=== PATIENT | male | born 1965 | race Caucasian/White ===

== ENCOUNTER 2016-12-30 16:42 | Emergency (ER) | payer SELFPAY ==
[~2016-12-30] VITALS: Ht 180.3 cm; Wt 86.2 kg
[2016-12-30 16:54] VITALS: BP 148/72
[2016-12-30] MEDS ORDERED: PENI500T PO (17:29)
[2016-12-30] MEDS ORDERED: TRAM-29 PO (17:29)
--- NOTE | 2016-12-30 17:29 | PHYS DOC ---
Past Medical History Past Medical History: No Pertinent History Past Surgical History: No Surgical History Additional Information: nonsmoker Alcohol Use: None Drug Use: None Adult General Chief Complaint Chief Complaint: DENTAL PROBLEM HPI HPI Patient is a 51 year old male who presents with right mandible or dental pain after his tooth broke while eating a [place] rancher candy. He does not take any home medications. His PCP is Dr. Albert Rosales. He does not have a dentist. Review of Systems Review of Systems Constitutional: Denies fever or chills. [] Eyes: Denies change in visual acuity, redness, or eye pain. [] HENT: Denies ear pain, nasal congestion or sore throat. Reports dental pain. Integument: Denies rash or skin lesions. [] Neurologic: Denies headache, focal weakness or sensory changes. [] Allergies Allergies Allergies Coded Allergies Type Severity Reaction Last Updated Verified No Known Drug Allergies 12/30/16 No Physical Exam Physical Exam Constitutional: Well developed, well nourished, no acute distress, non-toxic appearance. [] HENT: Normocephalic, atraumatic, bilateral external ears normal, oropharynx moist, no oral exudates, nose normal. Bilateral TMs without erythema or bulging. There is no posterior pharyngeal erythema or tonsillar edema. Tooth # 29 is broken around a previous filling. There is no surrounding gingival edema or dental abscess. Eyes: PERRLA, EOMI, conjunctiva normal, no discharge. [] Neck: Normal range of motion, no tenderness, supple, no stridor. [] Skin: Warm, dry, no erythema, no rash. [] Neurologic: Alert and oriented X 3, normal motor function, normal sensory function, no focal deficits noted. [] Psychologic: Affect normal, judgement normal, mood normal. [] Current Patient Data Vital Signs Vital Signs Date Time Temp Pulse Resp B/P Pulse Ox O2 Delivery O2 Flow Rate FiO2 12/30/16 16:54 98.2 80 18 99 Room Air 98.2 EKG EKG [] Radiology/Procedures Radiology/Procedures [] Course & Med Decision Making Course & Med Decision Making Pertinent Labs and Imaging studies reviewed. (See chart for details) [] Dragon Disclaimer Dragon Disclaimer This electronic medical record was generated, in whole or in part, using a voice recognition dictation system. Departure Departure Impression: Primary Impression: Dentalgia Disposition: 01 HOME, SELF-CARE Condition: STABLE Patient Instructions: Dental Pain, [id number] Additional Instructions: Please complete all the prescribed antibiotics, even if your tooth is feeling better. Please take the prescribed pain medication as instructed. Do not drive or operate heavy machinery while taking narcotics. Please follow-up with the dentist of your choice touch your earliest convenience. Return to emergency department if any new or concerning symptoms. Scripts Tramadol Hcl (Ultram)50 Mg [id number] Mg PO Q6H PRN PAIN #20 TAB Prov:VOLODYMYR HOOK 12/30/16 Penicillin V Potassium 500 Mg Tablet1 Tab PO TID #30 TAB Prov:VOLODYMYR HOOK 12/30/16 VOLODYMYR HOOK Dec 30, 2016 17:29
== END 2016-12-30 17:42 | disposition home or self-care (01) ==
LOC: ER 16:42
DX: K08.89 Other specified disorders of teeth and supporting structures (principal)
CPT/HCPCS: 99283

== ENCOUNTER 2018-11-23 15:53 | Emergency (ER) | payer SELFPAY ==
[~2018-11-23] VITALS: Ht 180.3 cm; Wt 90.7 kg
[~2018-11-23 15:53] MED LIST: PENI500T PO; TRAM-48 PO
[2018-11-23 17:59] VITALS: BP 149/80
[2018-11-23] MEDS ORDERED: HYDROcodone/APAP 5/325MG 1 TAB TABLET PO ONE (18:00)
--- NOTE | 2018-11-23 18:32 | PHYS DOC ---
Past Medical History Past Medical History: No Pertinent History (WILLEM MARIN APRN) Past Surgical History: No Surgical History (WILLEM MARIN APRN) Alcohol Use: None Drug Use: None (WILLEM MARIN APRN) Adult General Chief Complaint Chief Complaint: MECHANICAL FALL HPI HPI Patient is a 53 year old male who presents to the ER with complaints of tailbone pain after slip and fall on icy metal steps around 1630 today. He denies any LOC, numbness, tingling, or weakness of lower extremities. He denies any head injury or upper back pain. He rates his pain a 8/10 on the pain scale. (WILLEM MARIN APRN) Review of Systems Review of Systems Constitutional: Denies fever or chills [] Musculoskeletal: See HPI Integument: Denies rash or skin lesions [] Neurologic: Denies headache, focal weakness or sensory changes [] (WILLEM MARIN APRN) Current Medications Current Medications Current Medications Medications (Trade) Dose Ordered Sig/Daniel Start Time Stop Time Status Last Admin Dose Admin Acetaminophen/ Hydrocodone Bitart (Lortab 5/325) 1 tab 1X ONCE 11/23/18 18:00 11/23/18 18:01 DC 11/23/18 18:14 1 TAB (ZACHARY REVELES DO) Allergies Allergies Allergies Coded Allergies Type Severity Reaction Last Updated Verified No Known Drug Allergies 12/30/16 No (ZACHARY REVELES DO) Physical Exam Physical Exam Constitutional: Well developed, well nourished, no acute distress, non-toxic appearance. [] HENT: Normocephalic, atraumatic, bilateral external ears normal, nose normal. [ ] Eyes: conjunctiva normal, no discharge. [] Neck: Normal range of motion, no stridor. [] Skin: Warm, dry, no erythema, no rash. [] Back: midline tenderness lower lumbar and sacra regions, no crepitus or deformity [] Extremities: No cyanosis, no clubbing, ROM intact, no edema. [] Neurologic: Alert and oriented X 3, normal motor function, normal sensory function, no focal deficits noted. [] Psychologic: Affect normal, judgement normal, mood normal. [] (WILLEM MARIN APRN) Current Patient Data Vital Signs Vital Signs Date Time Temp Pulse Resp B/P (MAP) Pulse Ox O2 Delivery O2 Flow Rate FiO2 11/23/18 18:14 16 99 Room Air 11/23/18 17:59 97.6 83 149/80 (103) 97.6 (ZACHARY REVELES DO) EKG EKG [] (WILLEM MARIN APRN) Radiology/Procedures Radiology/Procedures Lumbar, sacral, and coccyx films are negative for acute findings read by Dr. Reveles. [] (WILLEM MARIN APRN) Course & Med Decision Making Course & Med Decision Making Pertinent Labs and Imaging studies reviewed. (See chart for details) [] (WILLEM MARIN APRN) Dragon Disclaimer Dragon Disclaimer This electronic medical record was generated, in whole or in part, using a voice recognition dictation system. (WILLEM MARIN APRN) Departure Departure Impression: Primary Impression: Contusion of coccyx Additional Impressions: Tailbone injury Fall (on) (from) other stairs and steps, initial encounter Disposition: HOME, SELF-CARE Condition: STABLE Referrals: NO PCP (PCP) Patient Instructions: Tailbone Injury, Setp-bn-[id number] Additional Instructions: Fill the prescription and use as directed. Recommend sitting on a pillow for comfort. Activity as tolerated. Follow up with your doctor if symptoms persist, return to the ER if symptoms worsen. Scripts Hydrocodone Bit/Acetaminophen (HYDROCODONE-APAP 5-325 ) 1 Tab Tablet 1 TAB PO PRN Q6HRS PRN for PAIN for 3 Days, #12 TAB 0 Refills Prov: WILLME MARIN APRN 11/23/18 Attending Signature Attending Signature I have reviewed the PA/NEWSPAPER PHOTOJOURNALIST's note and plan of care. I was available for consultation as needed during the patient's visit in the emergency department. I agree with the clinical impression, plan, and disposition. (ZACHARY REVELES DO) Problem Qualifiers Primary Impression: Contusion of coccyx Encounter type: initial encounter Qualified Codes: S30.0XXA - Contusion of lower back and pelvis, initial encounter Additional Impressions: Tailbone injury Encounter type: initial encounter Qualified Codes: S39.92XA - Unspecified injury of lower back, initial encounter WILLEM MARIN APRN Nov 23, 2018 18:32 ZACHARY REVELES DO Nov 24, 2018 00:55
[2018-11-23] MEDS ORDERED: HYDR-2761 PO (19:32)
--- NOTE | 2018-11-24 08:39 | RAD ---
Indications: Fall down stairs. Low back pain and tailbone pain. 3 view study of the sacrum and coccyx: No acute fracture or displacement or lytic process is seen. 3 view study of the lumbar spine: The transverse processes are intact. No compression fracture or discitis or lytic process or anterolisthesis is seen. IMPRESSION: No acute fracture. Electronically signed by: Erasmo Pleitez MD (11/24/2018 8:35 AM) [facility]
== END 2018-11-23 19:38 | disposition home or self-care (01) ==
LOC: ER 15:53
DX: S30.0XXA Contusion of lower back and pelvis, initial encounter (principal); W10.8XXA Fall (on) (from) other stairs and steps, initial encounter; Y93.89 Activity, other specified; Y92.89 Other specified places as the place of occurrence of the external cause; Y99.8 Other external cause status
CPT/HCPCS: 72100; 72220; 99283

== ENCOUNTER 2018-12-01 13:11 | Emergency (ER) | payer SELFPAY ==
[~2018-12-01] VITALS: Ht 180.3 cm; Wt 90.7 kg
[~2018-12-01 13:11] MED LIST changes: +HYDR-2761 PO
[2018-12-01 13:51] VITALS: BP 160/76
[2018-12-01] MEDS ORDERED: AZIT250T6 PO (14:07)
[2018-12-01] MEDS ORDERED: HYDR5SUS PO (14:07)
--- NOTE | 2018-12-01 14:07 | PHYS DOC ---
Past Medical History Past Medical History: No Pertinent History (WILLEM MARIN APRN) Past Surgical History: No Surgical History (WILLEM MARIN APRN) Alcohol Use: None Drug Use: None (WILLEM MARIN APRN) Adult General Chief Complaint Chief Complaint: COUGH HPI HPI Patient is a 53 year old male who presents to the ER with complaints of a productive cough, nasal congestion, and fevers up to 101 for the last 4-5 days. Pt denies any nausea, vomiting, diarrhea, abdominal, pain or shortness of breath. Pt states that he has post nasal drainage and that his throat feels irritated and raw. He denies any ear pain, nose bleeds, or drainage from ears. Pt states that his head feels congested and that when he feels like this his doctor usually prescribes him z-erickson and some tussionex and he feels better. (IWLLEM MARIN APRN) Review of Systems Review of Systems Constitutional: see HPI Eyes: Denies redness, or eye pain [] HENT: See HPI Respiratory: Denies wheezing or shortness of breath; see HPI Cardiovascular: No additional information not addressed in HPI [] GI: Denies abdominal pain, nausea, vomiting, or diarrhea [] Musculoskeletal: Denies back pain or joint pain [] Integument: Denies rash or skin lesions [] Neurologic: Denies headache, focal weakness or sensory changes [] (WILLEM MARIN APRN) Allergies Allergies Allergies Coded Allergies Type Severity Reaction Last Updated Verified No Known Drug Allergies 12/30/16 No (ZACHARY REVELES DO) Physical Exam Physical Exam Constitutional: Well developed, well nourished, no acute distress, non-toxic appearance. [] HENT: Normocephalic, atraumatic, bilateral external ears normal, bilateral TMs normal, cobblestone appearance of posterior pharynx with mild erythema, oropharynx moist, no oral exudates, nose normal. [] Eyes: conjunctiva normal, no discharge. [] Neck: Normal range of motion, no tenderness, supple, no stridor. [] Cardiovascular:Heart rate regular rhythm, no murmur [] Lungs & Thorax: Bilateral breath sounds scattered rhonchi that clears with cough [] Skin: Warm, dry, no erythema, no rash. [] Extremities: No cyanosis, no clubbing, ROM intact Neurologic: Alert and oriented X 3, normal motor function, normal sensory function, no focal deficits noted. [] Psychologic: Affect normal, judgement normal, mood normal. [] (WILLEM MARIN APRN) Current Patient Data Vital Signs Vital Signs Date Time Temp Pulse Resp B/P (MAP) Pulse Ox O2 Delivery O2 Flow Rate FiO2 12/01/18 13:51 98.2 76 18 160/76 (104) 100 Room Air 98.2 (ZACHARY REVELES DO) EKG EKG [] (WILLEM MARIN APRN) Radiology/Procedures Radiology/Procedures [] (WILLEM MARIN APRN) Course & Med Decision Making Course & Med Decision Making Pertinent Labs and Imaging studies reviewed. (See chart for details) Dx: URI, acute bronchitis Prescriptions for Z-Erickson and Tussionex. Patient verbalized an understanding of home care, medications, follow-up, and return to ED instructions and was in agreement with the plan of care. [] (WILLEM MARIN APRN) Dragon Disclaimer Dragon Disclaimer This electronic medical record was generated, in whole or in part, using a voice recognition dictation system. (WILLEM MARIN APRN) Departure Departure Impression: Primary Impression: URI with cough and congestion Additional Impression: Acute bronchitis Disposition: 01 HOME, SELF-CARE Condition: STABLE Referrals: ELLE RILEY MD (PCP) Patient Instructions: Upper Respiratory Infection, Adult, [id number] Additional Instructions: Fill prescription(s) and use as directed. Recommend use of a Cool mist humidifier in room at bedtime. Alternate Tylenol or ibuprofen as needed for pain /fever. Increase clear fluids. Avoid airway triggers such as smoke, fragrance, dust, and pollen. May take [id number] cough suppressants as needed. Follow -up with your primary care doctor symptoms persist, return to the ER symptoms worsen. Scripts Azithromycin (AZITHROMYCIN TABLET) 250 Mg Tablet 1 PKG PO UD for 5 Days, #6 TAB 0 Refills Prov: WILLEM MARIN APRN 12/01/18 Hydrocodone/Chlorphen Polis (HYDROCODONE-CHLORPHENIRAM SUSP) 5 Ml Madina.er.12h 5 ML PO PRN Q12HR PRN for COUGH for 5 Days, #50 ML 0 Refills Prov: WILLEM MARIN CRAYON SAWYER 12/01/18 Attending Signature Attending Signature I have reviewed the PA/MANUFACTURED BUILDINGS REPAIRER's note and plan of care. I was available for consultation as needed during the patient's visit in the emergency department. I agree with the clinical impression, plan, and disposition. (ZACHARY REVELES DO) Problem Qualifiers Additional Impression: Acute bronchitis Bronchitis organism: unspecified organism Qualified Codes: J20.9 - Acute bronchitis, unspecified WILLEM MARIN CRAYON SAWYER Dec 01, 2018 14:07 ZACHARY REVELES DO Dec 01, 2018 15:56
== END 2018-12-01 14:13 | disposition home or self-care (01) ==
LOC: ER 13:11
DX: J20.9 Acute bronchitis, unspecified (principal); J06.9 Acute upper respiratory infection, unspecified
CPT/HCPCS: 99283

== ENCOUNTER 2019-02-02 10:30 | Emergency (ER) | payer SELFPAY ==
[~2019-02-02] VITALS: Ht 180.3 cm; Wt 90.7 kg
[~2019-02-02 10:30] MED LIST changes: +AZIT250T6 PO; +HYDR5SUS PO
[2019-02-02 10:42] VITALS: BP 179/88
--- NOTE | 2019-02-02 10:47 | PHYS DOC ---
Past Medical History Past Medical History: No Pertinent History Past Surgical History: No Surgical History Alcohol Use: None Drug Use: None Adult General Chief Complaint Chief Complaint: DENTAL PROBLEM HPI HPI Patient is a 53 year old male who presents with moderate right lower gum dental pain that began today after he bit into hard candy. Patient states he broke his tooth. Patient states the pain is worse when he drinks anything cold "eats anything cold. He states he doesn't have a dentist but he for give him a list he will be able to call and establish care. Review of Systems Review of Systems Constitutional: Denies fever or chills [] HENT: Reports dental pain. Denies nasal congestion or sore throat [] Musculoskeletal: Denies back pain or joint pain [] Integument: Denies rash or skin lesions [] Neurologic: Denies headache, focal weakness or sensory changes [] All other systems were reviewed and found to be within normal limits, except as documented in this note. Allergies Allergies Allergies Coded Allergies Type Severity Reaction Last Updated Verified No Known Drug Allergies 12/30/16 No Physical Exam Physical Exam Constitutional: Well developed, well nourished, no acute distress, non-toxic appearance. [] HENT: Normocephalic, atraumatic, bilateral external ears normal, oropharynx moist, no oral exudates, nose normal. Tooth #29 is broken around a previous filling. Obvious dental decay to the affected tooth. No gum erythema. No gum swelling. Skin: Warm, dry, no erythema, no rash. [] Back: No tenderness, no CVA tenderness. [] Extremities: No tenderness, no cyanosis, no clubbing, ROM intact, no edema. [] Neurologic: Alert and oriented X 3, normal motor function, normal sensory function, no focal deficits noted. [] Psychologic: Affect normal, judgement normal, mood normal. [] Current Patient Data Vital Signs Vital Signs Date Time Temp Pulse Resp B/P (MAP) Pulse Ox O2 Delivery O2 Flow Rate FiO2 02/02/19 10:42 98.2 92 18 179/88 (118) 98 Room Air 98.2 EKG EKG [] Radiology/Procedures Radiology/Procedures [] Course & Med Decision Making Course & Med Decision Making Pertinent Labs and Imaging studies reviewed. (See chart for details) Patient has an infected tooth which broke today. While discharged with tramadol and amoxicillin. He is reasonable enough, he states he will call a dentist from the list provided and follow-up. Trent Disclaimer Dragon Disclaimer This electronic medical record was generated, in whole or in part, using a voice recognition dictation system. Departure Departure Impression: Primary Impression: Dentalgia Disposition: 01 HOME, SELF-CARE Referrals: ELLE RILEY MD (PCP) Follow-up with her dentist in the next 1-2 weeks Patient Instructions: Dental Pain, [id number] Additional Instructions: You were seen for dental pain in the emergency room. We put you on antibiotics, kindly ensure you complete them. Please contact a dentist and establish care. Do not drive or operate machinery on the pain medicine. Scripts Amoxicillin (AMOXICILLIN) 500 Mg Capsule 1 CAP PO BID, #20 CAP Prov: BALDEMAR GARZA APRN 02/02/19 Tramadol Hcl (TRAMADOL HCL) 50 Mg Tablet 50 MG PO Q6HRS PRN for PAIN, #20 TAB Prov: BALDEMAR GARZA APRN 02/02/19 BALDEMAR GARZA APRN Feb 02, 2019 10:47
[2019-02-02] MEDS ORDERED: AMOX500C PO (10:52)
[2019-02-02] MEDS ORDERED: TRAM50TA PO (10:52)
== END 2019-02-02 10:56 | disposition home or self-care (01) ==
LOC: ER 10:30
DX: K02.9 Dental caries, unspecified (principal)
CPT/HCPCS: 99283

== ENCOUNTER 2019-04-01 08:28 | Emergency (ER) | payer SELFPAY ==
[~2019-04-01] VITALS: Ht 180.3 cm; Wt 90.7 kg
[~2019-04-01 08:28] MED LIST changes: +AMOX500C PO; +TRAM50TA PO
[2019-04-01 09:14] VITALS: BP 158/83
[2019-04-01] MEDS ORDERED: diazePAM 5 MG TABLET PO ONE (09:15)
[2019-04-01] MEDS ORDERED: predniSONE 10 MG TABLET PO ONE (09:15)
[2019-04-01] MEDS ORDERED: MORPHINE SULFATE 10 MG/ML VIAL. IM ONE (09:15)
[2019-04-01] MEDS ORDERED: METH4TAB2 PO (09:24)
[2019-04-01] MEDS ORDERED: DICL50TA4 PO (09:24)
[2019-04-01] MEDS ORDERED: CYCL10TA2 PO (09:24)
--- NOTE | 2019-04-01 09:24 | PHYS DOC ---
Past Medical History Past Medical History: No Pertinent History Past Surgical History: No Surgical History Alcohol Use: None Drug Use: None Adult General Chief Complaint Chief Complaint: [facility] HPI Patient is a 53 year old male with no significant medical history who presents to the ED today complaining of 8 out of 10 left shoulder pain that began yesterday morning when he got up. Patient states he strongly believes he slept wrong on his shoulder. Denies any known injury. He states he typically sleeps in a certain position but woke up in a different position yesterday. Patient is completely denies any chest pain, shortness of breath or injury. He states the pain is worse on moving his left upper extremity to certain positions. He states the pain is sometimes relieved by raising his left upper extremity above his head. Patient states the pain radiates to the left upper extremity, denies any numbness or tingling to bilateral upper extremities. Review of Systems Review of Systems Constitutional: Denies fever or chills [] Eyes: Denies change in visual acuity, redness, or eye pain [] HENT: Denies nasal congestion or sore throat [] Respiratory: Denies cough or shortness of breath [] Cardiovascular: No additional information not addressed in HPI [] GI: Denies abdominal pain, nausea, vomiting, bloody stools or diarrhea [] : Denies dysuria or hematuria [] Musculoskeletal: Reports left shoulder pain Integument: Denies rash or skin lesions [] Neurologic: Denies headache, focal weakness or sensory changes [] All other systems were reviewed and found to be within normal limits, except as documented in this note. Allergies Allergies Allergies Coded Allergies Type Severity Reaction Last Updated Verified No Known Drug Allergies 12/30/16 No Physical Exam Physical Exam Constitutional: Well developed, well nourished, no acute distress, non-toxic appearance. [] HENT: Normocephalic, atraumatic, bilateral external ears normal, oropharynx moist, no oral exudates, nose normal. [] Eyes: PERRLA, EOMI, conjunctiva normal, no discharge. [] Neck: Normal range of motion, no tenderness, supple, no stridor. [] Cardiovascular:Heart rate regular rhythm, no murmur [] Lungs & Thorax: Bilateral breath sounds clear to auscultation [] Abdomen: Bowel sounds normal, soft, no tenderness, no masses, no pulsatile masses. [] Skin: Warm, dry, no erythema, no rash. [] Back: No tenderness, no CVA tenderness. [] Extremities: Left shoulder/upper extremity with no obvious deformity. No tenderness on palpation of the left shoulder upper extremity. Full range of motion to the left upper extremity. Adequate radial, medial, ulnar sensation to the left upper extremity. +2 left radial pulse. Cap refill less than 2 seconds the left fingers. Neurologic: Alert and oriented X 3, normal motor function, normal sensory fun ction, no focal deficits noted. [] Psychologic: Affect normal, judgement normal, mood normal. [] EKG EKG [] Radiology/Procedures Radiology/Procedures [] Course & Med Decision Making Course & Med Decision Making Pertinent Labs and Imaging studies reviewed. (See chart for details) This is a 53-year-old male patient presented to the ED today with complaints of left shoulder pain radiating to the left upper extremity symptoms began yesterday morning when he got up, patient believes he slept wrong on his left side. Talked to patient about slight possibility of this being a cardiac related pain, patient has completely refused any possibility of this being cardiac chest pain. He states he does not want any cardiac workup, he states he would like some pain medicine. He has no PCP. Provided him a clinic list for follow- up. Discharged on Medrol Dosepak, cyclobenzaprine and diclofenac. Dragon Disclaimer Dragon Disclaimer This electronic medical record was generated, in whole or in part, using a voice recognition dictation system. Departure Departure Impression: Primary Impression: Shoulder strain Additional Impression: Radicular pain in left arm Disposition: 01 HOME, SELF-CARE Condition: STABLE Referrals: ELLE RILEY MD (PCP) follow up next week Patient Instructions: Cervical Radiculopathy, [id number], Shoulder Sprain Additional Instructions: You were evaluated in the emergency room for pain to the left upper extremity. We wrote to medications, take them as prescribed. Follow-up with your doctor in the next 1 week. Please apply heat to the affected region. Scripts Diclofenac Sodium (DICLOFENAC SODIUM) 50 Mg Tablet. 1 TAB PO BID, #20 TAB 0 Refills Prov: EVANUNGABALDEMAR RADIO ELECTRONICS OFFICER 04/01/19 Methylprednisolone (MEDROL) 4 Mg Tab.ds.pk 1 PKG PO UD, #1 PKG Prov: MUTUNGA,BALDEMAR RADIO ELECTRONICS OFFICER 04/01/19 Cyclobenzaprine Hcl (CYCLOBENZAPRINE HCL) 10 Mg Tablet 1 TAB PO TID, #30 TAB Prov: BALDEMAR GARZA APRN 04/01/19 Problem Qualifiers Primary Impression: Shoulder strain Encounter type: initial encounter Laterality: left Qualified Codes: S46.912A - Strain of unspecified muscle, fascia and tendon at shoulder and upper arm level, left arm, initial encounter BALDEMAR GARZA APRN Apr 01, 2019 09:24
== END 2019-04-01 09:38 | disposition home or self-care (01) ==
LOC: ER 08:28
DX: S46.812A Strain of other muscles, fascia and tendons at shoulder and upper arm level, left arm, initial encounter (principal); X58.XXXA Exposure to other specified factors, initial encounter; Y93.89 Activity, other specified; Y92.89 Other specified places as the place of occurrence of the external cause; Y99.8 Other external cause status
CPT/HCPCS: 96372; 99283; J2270; J7512

== ENCOUNTER 2019-05-26 11:43 | Emergency (ER) | payer SELFPAY ==
[~2019-05-26] VITALS: Ht 180.3 cm; Wt 90.7 kg
[~2019-05-26 11:43] MED LIST changes: +CYCL10TA2 PO; +DICL50TA4 PO; +METH4TAB2 PO
[2019-05-26 12:24] VITALS: BP 150/82
--- NOTE | 2019-05-26 12:45 | PHYS DOC ---
Past Medical History Past Medical History: No Pertinent History Past Surgical History: No Surgical History Alcohol Use: None Drug Use: None Adult General Chief Complaint Chief Complaint: SHOULDER INJURY [facility] HPI Patient is a 53 year old male presents to the ED complaining of left shoulder injury. States he was moving furniture and states he tripped and landed on his left shoulder. Describes pain as sharp. Rates his pain as 5 out of 10. Pain with range of motion. Reports he suffered an abrasion to his left shoulder. Denies weakness, paresthesias, chest pain, shortness of breath, symptoms prior to fall or use of blood thinners. Review of Systems Review of Systems Constitutional: Denies fever or chills [] Eyes: Denies change in visual acuity, redness, or eye pain [] HENT: Denies nasal congestion or sore throat [] Respiratory: Denies cough or shortness of breath [] Cardiovascular: No additional information not addressed in HPI [] GI: Denies abdominal pain, nausea, vomiting, bloody stools or diarrhea [] : Denies dysuria or hematuria [] Musculoskeletal: Complains of shoulder pain. Denies back pain. [] Integument: Denies rash or skin lesions [] Neurologic: Denies headache, focal weakness or sensory changes [] All other systems were reviewed and found to be within normal limits, except as documented in this note. Allergies Allergies Allergies Coded Allergies Type Severity Reaction Last Updated Verified No Known Drug Allergies 12/30/16 No Physical Exam Physical Exam Constitutional: Well developed, well nourished, no acute distress, non-toxic appearance. [] HENT: Normocephalic, atraumatic Neck: Normal range of motion, no tenderness, supple, no stridor. [] Cardiovascular:Heart rate regular rhythm, no murmur [] Lungs & Thorax: Bilateral breath sounds clear to auscultation [] Skin: Warm, dry, no erythema, no rash. [] Back: No tenderness, no CVA tenderness. [] Extremities: mild left shoulder tenderness. Pain with ROM. Overlying abrasion to left lateral shoulder. Negative empty can test, Yergason's and speeds. NV intact. no cyanosis, no clubbing, ROM intact, no edema. [] Neurologic: Alert and oriented X 3, normal motor function, normal sensory function, no focal deficits noted. [] Psychologic: Affect normal, judgement normal, mood normal. [] Current Patient Data Vital Signs Vital Signs Date Time Temp Pulse Resp B/P (MAP) Pulse Ox O2 Delivery O2 Flow Rate FiO2 05/26/19 12:24 98.7 102 18 150/82 (104) 99 Room Air 98.7 EKG EKG [] Radiology/Procedures Radiology/Procedures []PROCEDURE: SHOULDER 2+V LEFT Exam performed:3 views left shoulder Indication: Left shoulder pain, injury Date of service: 05/26/2019. Comparison: None available Findings : AP radiographs of the shoulder in internal and external rotation as well as a Y-view reveal the osseous structures to be intact and well aligned. The joint space is well-preserved. The articular margins are smooth. Impression: No acute abnormal mobility seen. Course & Med Decision Making Course & Med Decision Making Pertinent Labs and Imaging studies reviewed. (See chart for details) Tetanus UTD. Discussed imaging findings with patient. Patient's pain improved in the ED. States he is feeling much better. Discussed symptomatic treatment and follow-up with orthopedics if pain persists. Provided contact information/education. Discussed reasons to return to the ED. Patient understands and agrees with plan. Dragon Disclaimer Dragon Disclaimer This electronic medical record was generated, in whole or in part, using a voice recognition dictation system. Departure Departure Impression: Primary Impression: Shoulder sprain Additional Impression: Abrasion Disposition: 01 HOME, SELF-CARE Condition: IMPROVED Referrals: ELLE RILEY MD (PCP) Patient Instructions: Abrasions, Shoulder Sprain Scripts Tramadol Hcl (TRAMADOL HCL) 50 Mg Tablet 50 MG PO Q4HRS PRN for PAIN, #10 TAB Prov: AYLA MATIAS 05/26/19 Problem Qualifiers AYLA MATIAS May 26, 2019 12:45
--- NOTE | 2019-05-26 12:53 | RAD ---
Exam performed:3 views left shoulder Indication: Left shoulder pain, injury Date of service: 05/26/2019. Comparison: None available Findings : AP radiographs of the shoulder in internal and external rotation as well as a Y-view reveal the osseous structures to be intact and well aligned. The joint space is well-preserved. The articular margins are smooth. Impression: No acute abnormal mobility seen. Electronically signed by: Rasheeda Levi MD (05/26/2019 12:50 PM) [facility]
[2019-05-26] MEDS ORDERED: TRAM50TA PO (13:14)
== END 2019-05-26 13:37 | disposition home or self-care (01) ==
LOC: ER 11:43
DX: S43.402A Unspecified sprain of left shoulder joint, initial encounter (principal); W18.49XA Other slipping, tripping and stumbling without falling, initial encounter; Y93.89 Activity, other specified; Y92.89 Other specified places as the place of occurrence of the external cause; Y99.8 Other external cause status
CPT/HCPCS: 73030; 99284

== ENCOUNTER 2019-09-13 15:24 | Emergency (ER) | payer SELFPAY ==
[~2019-09-13] VITALS: Ht 180.3 cm; Wt 90.7 kg
[2019-09-13 15:35] VITALS: BP 154/83
[2019-09-13] MEDS ORDERED: METH4TAB2 PO (15:57)
[2019-09-13] MEDS ORDERED: BENZ100C PO (15:57)
[2019-09-13] MEDS ORDERED: AZIT250T PO (15:57)
--- NOTE | 2019-09-13 15:57 | PHYS DOC ---
Past Medical History Past Medical History: No Pertinent History Past Surgical History: No Surgical History Alcohol Use: None Drug Use: None Adult General Chief Complaint Chief Complaint: COUGH HPI HPI Patient is a 54 year old non-smoker male without history of medical problem who presents with complaint of cough and congestion. Patient complaining of nonproductive cough and nasal congestion for the last one week associated with sore throat, nasal pressure and congestion, sinus pain, posttussive vomiting and generalized weakness. Patient complaining of low-grade fever up to 100 without sick contact, shortness of breath, diarrhea, chest pain. Patient states he usually gets URIs infection with change of weather. Review of Systems Review of Systems Constitutional: Reports fever Eyes: Denies change in visual acuity, redness, or eye pain [] HENT: Reports nasal congestion and sore throat Respiratory: Reports cough Cardiovascular: No additional information not addressed in HPI [] GI: Denies abdominal pain, bloody stools or diarrhea [] : Denies dysuria or hematuria [] Musculoskeletal: Denies back pain or joint pain [] Integument: Denies rash or skin lesions [] Neurologic: Denies headache, focal weakness or sensory changes [] Endocrine: Denies polyuria or polydipsia [] All other systems were reviewed and found to be within normal limits, except as documented in this note. Allergies Allergies Allergies Coded Allergies Type Severity Reaction Last Updated Verified No Known Drug Allergies 12/30/16 No Physical Exam Physical Exam Constitutional: Well developed, well nourished, mild distress, non-toxic appearance. [] HENT: Normocephalic, atraumatic, bilateral external ears normal, oropharynx moist, no oral exudates, nasal congestion. [] Eyes: PERRLA, EOMI, conjunctiva normal, no discharge. [] Neck: Normal range of motion, no tenderness, supple, no stridor. [] Cardiovascular:Heart rate regular rhythm, no murmur [] Lungs & Thorax: Bilateral breath sounds clear to auscultation [] Abdomen: Bowel sounds normal, soft, no tenderness, no masses, no pulsatile masses. [] Skin: Warm, dry, no erythema, no rash. [] Back: No tenderness, no CVA tenderness. [] Extremities: No tenderness, no cyanosis, no clubbing, ROM intact, no edema. [] Neurologic: Alert and oriented X 3, normal motor function, normal sensory function, no focal deficits noted. [] Psychologic: Affect normal, judgement normal, mood normal. [] Current Patient Data Vital Signs Vital Signs Date Time Temp Pulse Resp B/P (MAP) Pulse Ox O2 Delivery O2 Flow Rate FiO2 09/13/19 15:35 98.2 97 16 154/83 (106) 100 Room Air 98.2 EKG EKG [] Radiology/Procedures Radiology/Procedures [] Course & Med Decision Making Course & Med Decision Making Evaluation of patient in ER showed 54-year-old male patient with complaining of URI symptoms for 1 week. Patient had unremarkable physical exam except for nasal congestion. Plan discharge patient home with diagnose of acute bronchitis and upper respiratory infection. I've spoken with the patient and/or caregivers. I've explained the patient's condition, diagnosis and treatment plan based on information available to me at this time. I've answered the patient's and/or caregivers questions and addressed any concerns. The patient and/or caregivers have a good understanding the patient's diagnosis, condition and treatment plan as can be expected at this p oint. Vital signs have been stabilized. The patient's condition is stable for discharge from the emergency department. The patient will pursue further outpatient evaluation with her primary care provider or other designated consulting physician as outlined in the discharge instructions. Patient and/or caregivers are agreeable to this plan of care and follow-up instructions have been explained in detail. The patient and/or caregivers have received these instructions in written format and expressed understanding of these discharge instructions. The patient and her caregivers are aware that if any significant change in condition or worsening of symptoms should prompt him to immediately return to this of the closest emergency department. If an emergent department is not readily available I would encourage him to call 911. Dragon Disclaimer Dragon Disclaimer This electronic medical record was generated, in whole or in part, using a voice recognition dictation system. Departure Departure Impression: Primary Impression: Acute bronchitis Disposition: HOME, SELF-CARE (at 1553) Condition: STABLE Referrals: ELLE RILEY MD (PCP) Patient Instructions: Acute Bronchitis Additional Instructions: Drink plenty of liquids Follow-up with your primary care physician in 3-5 days Return to ER if not getting better Scripts Azithromycin (ZITHROMAX) 250 Mg Tablet 1 PKG PO UD for infection, #1 PKG Prov: TAMIE MA MD 09/13/19 Benzonatate (TESSALON PERLE) 100 Mg Capsule 1 CAP PO TID for cough, #21 CAP Prov: TAMIE MA MD 09/13/19 Methylprednisolone (MEDROL) 4 Mg Tab.ds.pk 1 PKG PO UD for inflammation, #1 PKG Prov: TAMIE MA MD 09/13/19 Problem Qualifiers Primary Impression: Acute bronchitis Bronchitis organism: unspecified organism Qualified Codes: J20.9 - Acute bronchitis, unspecified TAIME MA MD Sep 13, 2019 15:57
== END 2019-09-13 16:21 | disposition home or self-care (01) ==
LOC: ER 15:24
DX: J20.9 Acute bronchitis, unspecified (principal); R50.9 Fever, unspecified; R53.1 Weakness
CPT/HCPCS: 99283